=== PATIENT | male | born 1995 | race Caucasian/White ===

== ENCOUNTER 2025-01-05 21:24 | Emergency (ER) | payer SELFPAY ==
[~2025-01-05] VITALS: Ht 170.2 cm; Wt 104.0 kg
[2025-01-05 21:27] VITALS: O2SAT 98
[2025-01-05 21:31] VITALS: BP 138/89; PULSE 90; RESP 18; TEMP 36.9; O2SAT 98
[2025-01-05] MEDS ORDERED: MUPI1OIN4 TP (21:54)
[2025-01-05] MEDS ORDERED: SULF1TAB48 MT (21:54)
== END 2025-01-05 22:11 | disposition home or self-care (01) ==
LOC: ER 21:24
DX: L03.039 Cellulitis of unspecified toe (principal)
CPT/HCPCS: 99283